=== PATIENT | male | born 1965 | race Hispanic/Latino ===

== ENCOUNTER 2023-09-11 07:40 | Day surgery (SDC) | payer OTHER ==
[2023-09-07 10:02] VITALS: BP 143/80
[~2023-09-11] VITALS: Ht 167.6 cm; Wt 90.9 kg
[2023-09-11 08:02] VITALS: BP 140/89
[2023-09-11] MEDS ORDERED: HYDROCODON-ACE1 EA10 PO (10:14)
[2023-09-11] MEDS ORDERED: DICLOFENAC SODI75 MG PO (10:14)
--- NOTE | 2023-09-11 10:30 | NUR ---
09/11/23 1030 Natalya Brown 1019-PATIENT ARRIVES TO PACU ON 10L VIA MASK. PATIENT IS NONAROUSASBLE AND OPA IN PLACE. JAW THRUST DONE BY THIS RN. 1025-PATIENT RESPSONDS TO PAINFUL STIMULI. JAW THRUST COMPLETE. OPA REMOVED. HOB ELEVATED. PATIENT REPORTS NO PAIN. REPS EVEN AND UNLABOREED.
--- NOTE | 2023-09-11 10:55 | NUR ---
PT ARRIVES TO UNIT FROM PACU VIA STRETCHER. PT IS A&O X4 BUT PERIODICALLY DROWSY. REPORT RECEIVED FROM AIME MCINTYRE, PT IS AT BEDSIDE AT THIS TIME. PT REPORTS PAIN 1/10 AND STATES THIS IS TOLERABLE AT THIS TIME. PT STATES NO NAUSEA, DIZZINESS, N/T, OR SOB. DRESSING INTACT, NO SIGNS OF BLEEDING AT THIS TIME, ICE IN PLACE. ICE WATER, JELLO, AND CRACKERS PROVIDED AT THIS TIME. CALL LIGHT WITHIN REACH, NO FURTHER NEEDS AT THIS TIME.
[2023-09-11 10:58] VITALS: BP 130/81
[2023-09-11 11:59] VITALS: BP 146/84
--- NOTE | 2023-09-11 12:00 | NUR ---
IN PT ROOM FOR ASSESSMENT AND VS. PT REPORTS PAIN REMAINS 1/10 AND STATES NO NEED FOR PRN MEDS AT THIS TIME. PT STATES NO NAUSEA OR DIZZINESS. PT STANDS AT BEDSIDE AND PT ABLE TO BARE SOME WEIGHT ON LFT LEG AND AMBULATE W/STANDBY ASSISTANCE. VS TAKEN. PT TO BATHROOM FOR 200 ML URINE VOID. PT NOW GETTING DRESSED WITH 'S ASSISTANCE. CALL LIGHT WITHIN REACH, NO FURTHER NEEDS AT THIS TIME.
--- NOTE | 2023-09-11 12:20 | NUR ---
THIS RN IN ROOM FOR DISCHARGE EDUCATION, PT AND PT STATE VERBAL UNDERSTANDING AND REPORT NO FURTHER QUESTIONS AT THIS TIME. IV DC'ED, CATH TIP INTACT, GAUZE/COBAN INTACT. THIS RN ESCORTS PT OFF OF UNIT VIA WC AND STANDBY ASSIST TO PASSENGER SEAT OF VEHICLE. PT AND PT FAMILY REPORT NO FURTHER QUESTIONS OR NEEDS AT THIS TIME. ALL BELONGINGS IN PT POSSESSION.
--- NOTE | 2023-09-13 12:43 | OR ---
[facility] [address], [place] [address] Signed DATE OF OPERATION: 09/11/2023 SURGEON: Gina Machado MD PREOPERATIVE DIAGNOSIS: Medial meniscus tear, left knee. POSTOPERATIVE DIAGNOSIS: Medial meniscus tear, left knee. PROCEDURE PERFORMED: left knee arthroscopy with partial medial meniscectomy. CLIENT MANAGER [employer]: Awa Bell PA-C. ANESTHESIA: General. BLOOD LOSS: Minimal. BRIEF HISTORY: Quinton is a 58-year-old gentleman, who injured his knee at work and was found to have a posterior radial tear of his medial meniscus. Risks, benefits, and alternatives of surgery were discussed with him and he elected to proceed. Once consent was obtained, he was taken to the operating room. After adequate anesthesia, he was placed on the operating room table. All downside pressure points were well padded. The right leg was flexed, abducted and externally rotated on a well-padded leg dexter. Left was placed in well-padded leg dexter with no tourniquet. The leg was prepped and draped in a standard sterile fashion. Portal sites were injected with 0.25% Marcaine with epinephrine. Standard inferolateral and superolateral portals were established and the scope was introduced into the knee. ARTHROSCOPIC FINDINGS: The knee had a significant synovitis throughout. The patellofemoral joint was intact. Medial and lateral gutters were clear with mild osteophytes. The ACL graft was noted to be torn and attenuated. Lateral compartment was intact. 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 There was a Electronically Signed By: GINA MACHADO MD 09/11/23 1103 Electronically Signed By: GINA MACHADO MD 09/18/23 0711 PATIENT NAME: QUINTON MURPHY OPERATIVE REPORT DATE OF : 61 REPORT #: [id number] PHYSICIAN: GINA MACHADO MD PCP: OTHER PCP REPORT IS CONFIDENTIAL AND NOT TO BE RELEASED WITHOUT AUTHORIZATION [facility] [address] [facility] [place], [place] [address] Signed large oblique radial tear in the posterior body. DESCRIPTION OF OPERATION: Standard inferomedial portal was made after establishing the position using a spinal needle. The straight and curved biters were used to trim the meniscus back to a stable rim medially and laterally. It was then smoothed using the shaver and debris was evacuated. The scope was then withdrawn. Portals were closed with 3-0 nylon and the knee was injected with 60 mg of Toradol. The wounds were dressed with Adaptic, ABD, and Jonathon wrap. He tolerated the procedure well. All sponge, needle, and instrument counts were correct. Gina Machado MD BA/JIMYL /[id number] Copies: ~ Electronically Signed By: GINA MACHADO MD 09/11/23 1103 Electronically Signed By: GINA MACHADO MD 09/18/23 0711 PATIENT NAME: QUINTON MURPHY OPERATIVE REPORT DATE OF : 61 REPORT #: [id number] PHYSICIAN: GINA MACHADO MD PCP: OTHER PCP REPORT IS CONFIDENTIAL AND NOT TO BE RELEASED WITHOUT AUTHORIZATION
== END 2023-09-11 12:20 | disposition home or self-care (01) ==
LOC: DS 07:40
PROVIDERS: ATTEND Specialist
PROC: 0SBC4ZZ Excision of Right Knee Joint, Percutaneous Endoscopic Approach (ICD-10-PCS; principal; 2023-09-11 09:30)
DX: S83.241A Other tear of medial meniscus, current injury, right knee, initial encounter (principal); X58.XXXA Exposure to other specified factors, initial encounter; M94.261 Chondromalacia, right knee
CPT/HCPCS: 01400; J0690; J1100; J1885; J2250; J2405; J2704; J2765; J3010; J7121